=== PATIENT | male | born 1965 | race Caucasian/White ===

== ENCOUNTER 2023-03-12 08:14 | Emergency (ER) | payer BC, OTHER ==
[2023-03-12 08:24] VITALS: BP 140/94; PULSE 72
[2023-03-12] MEDS ORDERED: HYDROmorphone 1 MG/ML Syringe IVPUSH ONE ×2 (08:31→10:18)
[2023-03-12] MEDS ORDERED: Sodium Chloride 0.9% 1,000 ML IV ONE (08:31)
[2023-03-12] MEDS ORDERED: Ondansetron 4 MG/2 ML SDV IV ONE (08:31)
[2023-03-12] MEDS ORDERED: Sodium Chloride 0.9% 10 ML Syringe FLUSH PRN (08:32)
[2023-03-12 08:39] LABS: HEMATOCRIT 44.7 % (40.0-54.0); HEMOGLOBIN 16.2 g/dL (14.0-18.0); MEAN CORPUSCULAR HGB CONC 36.2 g/dL (33.0-35.0); MEAN CORPUSCULAR VOLUME 88.3 fL (80-100); PLATELET COUNT,PLT 192 10^3/uL (150-450); RED BLOOD CELL COUNT 5.06 10^6/uL (4.6-6.2); WHITE BLOOD CELL COUNT,WBC 5.7 10^3/uL (5.0-10.0)
[2023-03-12 08:48] LABS: BASOPHILS PERCENT AUTO 0.4 % (0.0-1.0); EOSINOPHILS PERCENT AUTO 2.3 % (1.0-3.0); LYMPHOCYTES PERCENT AUTO 20.1 % (20.5-50.1); MONOCYTES PERCENT AUTO 6.2 % (2-8)
[2023-03-12 08:58] LABS: ALBUMIN 3.7 g/dL (3.4-5.0); ANION GAP 10.2 mEq/L (7-13); BILIRUBIN TOTAL 0.3 mg/dL (0.2-1.0); BUN/CREATININE RATIO 14.4 (No establ ref range); CALCIUM 9.2 mg/dL (8.5-10.1); CREATININE 1.6 mg/dL (0.70-1.30); EST CRCL DRUG DOSING (CG) 49.88 mL/min; POTASSIUM,K 4.2 mmol/L (3.5-5.1); PROTEIN TOTAL,TP 7.4 g/dL (6.4-8.2)
[2023-03-12 09:01] LABS: LACTIC ACID 1.2 mmol/L (0.4-2.0)
[2023-03-12 10:45] LABS: BAND PERCENT MAN 3 %; BASOPHILS PERCENT MAN 1; EOSINOPHILS PERCENT MAN 1 % (1-3); LYMPHOCYTES PERCENT MAN 20 % (20-50); MONOCYTES PERCENT MAN 11 % (2-8); SEG NEUTROPHILS PERCENT MAN 64 % (42-75)
[2023-03-12 11:01] LABS: APPEARANCE,URINE CLEAR (CLEAR); BILIRUBIN,URINE NEGATIVE (NEGATIVE); COLOR,URINE YELLOW (YELLOW); GLUCOSE,URINE NEGATIVE (NEGATIVE); KETONES,URINE NEGATIVE (NEGATIVE); LEUKOCYTE ESTERASE,URINE NEGATIVE (NEGATIVE); NITRITE,URINE NEGATIVE (NEGATIVE); OCCULT BLOOD,URINE TRACE-INTACT (NEGATIVE); PH,URINE 5.5 (5.0-9.0); PROTEIN,URINE NEGATIVE (NEGATIVE); UROBILINOGEN,URINE 0.2 mg/dL (0.2-1.0)
[2023-03-12 11:12] LABS: BACTERIA,URINE NOT SEEN /HPF (0-FEW/HPF); EPITHELIAL CELLS,URINE RARE /HPF (NOT SEEN); MUCUS,URINE NOT SEEN /LPF (NOT SEEN); RBC,URINE 0-5 /HPF (0-5); WBC,URINE NOT SEEN /HPF (0-5/HPF)
== END 2023-03-12 10:55 ==
LOC: DL.ED 08:14
DX: K80.62 Calculus of gallbladder and bile duct with acute cholecystitis without obstruction (principal)
CPT/HCPCS: 36415; 76705; 80053; 81001; 83605; 83690; 85025; 96361; 96374; 96375; 99284; 99285-25; J1170; J2405; J3490; J7030